=== PATIENT | male | born 1955 | race Caucasian/White ===

== ENCOUNTER 2017-01-18 11:51 | Emergency (ER) | payer OTHER ==
--- NOTE | 2017-01-18 12:31 | EDM.PDOC ---
ED HPI GENERAL MEDICAL PROBLEM - General Chief Complaint: ENT Problem Stated Complaint: LT EYE INJURY Time Seen by Provider: 01/18/17 12:07 Source of Information: Reports: Patient, Family (), RN Notes Reviewed History Limitations: Reports: No Limitations - History of Present Illness INITIAL COMMENTS - FREE TEXT/NARRATIVE: The patient states that he was clearing some brush, when the branch of an [place] struck him in his left eye around 11:00 this morning. He states that he flushed his eye copiously, but still has a foreign body sensation. He does not have pain in the eye, specifically. He has some blurry vision, but no photophobia. No prior left eye injury. The patient's PCP is Dr. Mack. Left Eye Pain Score (Numeric/FACES): 3 - Related Data Allergies Allergy/AdvReac Type Severity Reaction Status Date / Time gluten Allergy Abdominal Verified 01/18/17 12:08 Pain Home Meds: Home Meds Ketorolac [Acular 0.5% Ophth Soln] 1 drop EYELF QID PRN #1 bottle 01/18/17 [Rx] Pravastatin [Pravachol] 40 mg PO DAILY 01/18/17 [History] Past Medical History Cardiovascular History: Reports: High Cholesterol Gastrointestinal History: Reports: Celiac Disease - Past Surgical History GI Surgical History: Reports: Appendectomy, Hernia, Inguinal Social & Family History - Family History Family Medical History: Noncontributory - Tobacco Use Smoking Status *Q: Never Smoker - Alcohol Use Alcohol Use History: Yes Alcohol Use Frequency: Socially - Recreational Drug Use Recreational Drug Use: No - Living Situation & Occupation Living situation: Reports: , with Spouse Occupation: Employed ([employer]) ED ROS GENERAL - Review of Systems Review Of Systems: See Below Constitutional: Reports: No Symptoms HEENT: Reports: No Symptoms Respiratory: Reports: No Symptoms Cardiovascular: Reports: No Symptoms Endocrine: Reports: No Symptoms GI/Abdominal: Reports: No Symptoms : Reports: No Symptoms Musculoskeletal: Reports: No Symptoms Skin: Reports: No Symptoms Neurological: Reports: No Symptoms Psychiatric: Reports: No Symptoms Hematologic/Lymphatic: Reports: No Symptoms Immunologic: Reports: No Symptoms ED EXAM GENERAL W FULL EYE - Physical Exam Exam: See Below Exam Limited By: No Limitations General Appearance: Alert, WD/WN, No Apparent Distress Eye Exam: Left Eye: Corneal Abrasion (minimal), Bilateral Eye: EOMI, PERRL Eyelids: Bilateral: Normal Appearance Conjunctiva & Sclera: Left: Injected (mild) Cornea Exam: Left: Corneal Abrasion (scratch across middle of cornea), Examined with Flourescein Extraocular Movements: Bilateral: Intact Pupils: Normal Accommodation Pupillary Size: Bilateral: 5 mm Pupillary Reaction: Bilateral: Brisk Anterior Chamber: Bilateral: Normal Appearance ED EYE w/ Add Procedure - Eye Procedure Alcaine Drops Administered: Yes Course - Vital Signs Last Recorded V/S: Last Vital Signs Temp 36.7 C 01/18/17 12:06 Pulse 72 01/18/17 12:06 Resp 16 01/18/17 12:06 BP 133/83 01/18/17 12:06 Pulse Ox 97 01/18/17 12:06 - Re-Assessments/Exams Free Text/Narrative Re-Assessment/Exam: 01/18/17 12:24 The patient has a scratch on his left cornea. I will prescribe Acular. Departure - Departure Time of Disposition: 12:24 Disposition: Home, Self-Care 01 Condition: Good Clinical Impression: Left corneal abrasion - Discharge Information Prescriptions: Ketorolac [Acular 0.5% Ophth Soln] 1 drop EYELF QID PRN #1 bottle PRN Reason: Pain Instructions: Corneal Abrasion, [id number] Referrals: Clark Obando MD [Primary Care Provider] - Forms: ED Department Discharge Additional Instructions: You were seen in the emergency room after your left eye was injured by a tree branch. On examination, you have a scratch to your left cornea. Instill 1 drop of the pain medicine until Acular into your left eye every 6 hours, as needed for pain You should expect resolution of her symptoms within a few days. If your symptoms persist, please follow-up with an eye doctor. If any other problems, please do not hesitate to return to the ER.
== END 2017-01-18 12:36 | disposition home or self-care (01) ==
LOC: JD.ED 11:51
CPT/HCPCS: 99283

== ENCOUNTER 2017-09-15 08:53 | Day surgery (SDC) | payer OTHER ==
[~2017-09-15 08:53] MED LIST: Lactated Ringers 1,000 ML IV SCH; Lidocaine 1%/Sod Bicarbonate in NS 8.4% 1 ML Syringe IDERM PRN; Sodium Chloride 0.9% 10 ML Syringe FLUSH PRN
[2017-09-15] MEDS ORDERED: fentaNYL 100 MCG/2 ML SDV ONE ×2 (09:21→11:56)
[2017-09-15] MEDS ORDERED: Lidocaine 1% 2 ML ONE (09:21)
[2017-09-15] MEDS ORDERED: Midazolam 1 MG/ML 2 ML SDV ONE (09:21)
[2017-09-15] MEDS ORDERED: Ropivacaine 0.5% 5 MG/ML 30 ML SDV ONE (09:47)
[2017-09-15] MEDS ORDERED: EPINEPHrine 1 MG/ML SDV ONE (09:47)
[2017-09-15] MEDS ORDERED: Bupivacaine 0.25% 10 ML SDV ONE (09:59)
--- NOTE | 2017-09-15 10:01 | PCM.PREANE ---
Preanesthetic Assessment - Anesthesia/Transfusion/Family Hx Anesthesia History: Prior Anesthesia Without Reaction Family History of Anesthesia Reaction: No Transfusion History: No Prior Transfusion(s) - Review of Systems General: No Symptoms Pulmonary: No Symptoms Cardiovascular: No Symptoms Gastrointestinal: No Symptoms Neurological: No Symptoms Other: Reports: None - Physical Assessment NPO Status Date: 09/14/17 NPO Status Time: 19:30 Pulse: 62 O2 Sat by Pulse Oximetry: 97 Respiratory Rate: 16 Blood Pressure: 139/94 Temperature: 36.7 C Vital Signs: Last Vital Signs Temp 36.7 C 09/15/17 09:00 Pulse 62 09/15/17 09:00 Resp 16 09/15/17 09:00 BP 139/94 H 09/15/17 09:00 Pulse Ox 97 09/15/17 09:00 Height: 1.75 m Weight: 81.193 kg ASA Class: 2 Mental Status: Alert & Oriented x3 Dentition: Reports: Normal Dentition, [place](s) Thyro-Mental Finger Breadths: 3 Mouth Opening Finger Breadths: 3 ROM/Head Extension: Full Lungs: Clear to Auscultation, Normal Respiratory Effort Cardiovascular: Regular Rate, Regular Rhythm, No Murmurs - Lab Values: Laboratory Last Values MRSA (PCR) Negative 09/10/17 11:22 - Imaging/EKG Impressions: EKG on chart SR - Allergies Allergies/Adverse Reactions: Allergies Allergy/AdvReac Type Severity Reaction Status Date / Time gluten Allergy Abdominal Verified 09/15/17 09:50 Pain - Blood Blood Available: No Product(s) Available: None - Anesthesia Plan Pre-Op Medication Ordered: None - Acknowledgements Anesthesia Type Planned: General Anesthesia, Regional Block (interscalene block for post-op pain control) Pt an Appropriate Candidate for the Planned Anesthesia: Yes Alternatives and Risks of Anesthesia Discussed w Pt/Guardian: Yes Pt/Guardian Understands and Agrees with Anesthesia Plan: Yes PreAnesthesia Questionnaire HEENT History: Reports: None Cardiovascular History: Reports: High Cholesterol Respiratory History: Reports: SOB Gastrointestinal History: Reports: Celiac Disease, Other (See Below) Other Gastrointestinal History: duodenitis, fatty liver Genitourinary History: Reports: None MANAGER OF FINANCIAL History: Reports: None Musculoskeletal History: Reports: Back Pain, Chronic, Other (See Below) Other Musculoskeletal History: right hand fracture, hamstring strain, muscle spasms Neurological History: Reports: Other (See Below) Other Neuro History: dizziness Psychiatric History: Reports: None Endocrine/Metabolic History: Reports: None Hematologic History: Reports: None Immunologic History: Reports: None Oncologic (Cancer) History: Reports: None Dermatologic History: Reports: None - Past Surgical History Head Surgeries/Procedures: Reports: None HEENT Surgical History: Reports: None Cardiovascular Surgical History: Reports: None Respiratory Surgical History: Reports: None GI Surgical History: Reports: Appendectomy, Colonoscopy, EGD, Hernia, Inguinal Male Surgical History: Reports: Vasectomy Endocrine Surgical History: Reports: None Neurological Surgical History: Reports: None Musculoskeletal Surgical History: Reports: None Oncologic Surgical History: Reports: None Dermatological Surgical History: Reports: None - SUBSTANCE USE Smoking Status *Q: Never Smoker Tobacco Use Within Last Twelve Months: No Second Hand Smoke Exposure: No Days Per Week of Alcohol Use: 0 Number of Drinks Per Day: 0 Total Drinks Per Week: 0 Recreational Drug Use History: No - HOME MEDS Home Medications: Home Meds Pravastatin [Pravachol] 40 mg PO DAILY 01/18/17 [History] Ascorbic Acid [Vitamin C] 500 mg PO DAILY 09/12/17 [History] Ergocalciferol (Vitamin D2) [Vitamin D2] 50,000 unit PO WEEKLY 09/12/17 [History ] Acetaminophen/HYDROcodone [[place] 325-5 MG] 1 - 2 tab PO Q6H PRN #40 tablet 09/15 [Rx] Cyclobenzaprine [Flexeril] 10 mg PO Q8H PRN #40 tab 09/15/17 [Rx] - CURRENT (IN HOUSE) MEDS Current Meds: Current Medications Epinephrine HCl (Adrenalin) 3 mg .XX ONETIME ONE Stop: 09/15/17 11:46 Lactated Ringer's (Ringers, Lactated) 1,000 mls @ 125 mls/hr IV ASDIRECTED [place] Stop: 09/15/17 23:00 Lidocaine/Sodium Bicarbonate (Buffered Lidocaine 1% In Ns 8.4%) 0.25 ml IDERM ONETIME PRN PRN Reason: Prior to IV Start Stop: 09/15/17 18:00 Sodium Chloride (Saline Flush) 10 ml FLUSH ASDIRECTED PRN PRN Reason: Keep Vein Open Stop: 09/15/17 18:00 Discontinued Medications Bupivacaine HCl (Sensorcaine-Mpf 0.25%) Confirm Administered Dose 10 ml .ROUTE .STK-MED ONE Stop: 09/15/17 10:00 Fentanyl (Sublimaze) Confirm Administered Dose 100 mcg .ROUTE .STK-MED ONE Stop: 09/15/17 09:22 Lidocaine HCl (Xylocaine-Mpf 1%) Confirm Administered Dose 2 mls @ as directed .ROUTE .STK-MED ONE Stop: 09/15/17 09:22 Midazolam HCl (Versed 1 Mg/Ml) Confirm Administered Dose 2 mg .ROUTE .STK-MED ONE Stop: 09/15/17 09:22
[2017-09-15] MEDS ORDERED: Propofol 200 MG/20 ML SDV ONE (10:11)
[2017-09-15] MEDS ORDERED: Lidocaine 1% 4 ML ONE (10:11)
[2017-09-15] MEDS ORDERED: Ondansetron 4 MG/2 ML SDV ONE (10:11)
--- NOTE | 2017-09-15 10:45 | PCM.SN ---
- Free Text/Narrative Note: 09/15/17 [id number] Time out performed. Requested to place right interscale block with ultrasound guidance and nerve stimulator for post op pain control per Dr. Solis and patient. Preop diagnosis right shoulder pain. Procedure is right shoulder arthrosocpy with rotator cuff repair, decompression. Block assisted by Shyanne Matson Informed consent obtained. Monitors and O2 placed at 2 l per n/c. Versed 2 mg and Fentanyl 50 mcg given IV total. Patient awake and talking during procedure.Right neck and clavicle area prepped with chlorprep. Sterile gloves, hat and mask worn. US probe with sterile sleeve placed midclavicular with ID of brachial plexus and subclavian artery. Brachial plexus followed cephalad to level of cricoid. Lidocaine 1% local anesthetic injected prior to block placement. 22 g 2 inch stimplex needle advanced with US guidance to brachial plexus. Positive forearm response at .3 AmA with nerve stimulator. Ceased with saline injection.Ropivacaine 0.5% with epi 1:200,000 injected in increments of 5 ml with negative aspiration before each injection to a total of 30 ml. Good spread of local anesthetic seen on US. Patient tolerated procedure well. Vitals stable with no complaints. AJordaCRNA
[2017-09-15] MEDS ORDERED: Dexamethasone 4 MG/ML 5 ML MDV ONE (10:56)
[2017-09-15] MEDS ORDERED: ceFAZolin 1 GM Vial ONE (10:56)
[2017-09-15] MEDS ORDERED: Ketorolac 30 MG/ML SDV ONE (10:59)
[2017-09-15] MEDS ORDERED: Rocuronium 50 MG/5 ML Vial ONE (11:35)
[2017-09-15] MEDS ORDERED: EPINEPHrine 1 MG/ML 30 ML MDV ONE (11:45)
--- NOTE | 2017-09-15 13:18 | PCM.POSTAN ---
POST ANESTHESIA ASSESSMENT - MENTAL STATUS Mental Status: Alert, Oriented - VITAL SIGNS Pulse Rate: 66 SaO2: 94 Resp Rate: 16 Blood Pressure: 132/71 Temperature: 36.2 C - RESPIRATORY Respiratory Status: Respiratory Rate WNL, Airway Patent, O2 Saturation Stable, Supplemental Oxygen - CARDIOVASCULAR CV Status: Pulse Rate WNL, Blood Pressure Stable - GASTROINTESTINAL GI Status: No Symptoms - PAIN Pain Score: 0 - POST OP HYDRATION Hydration Status: Adequate & Stable
[2017-09-15] MEDS ORDERED: Ondansetron 4 MG/2 ML SDV IVPUSH PRN (13:19)
[2017-09-15] MEDS ORDERED: fentaNYL 100 MCG/2 ML SDV IVPUSH PRN (13:19)
[2017-09-15] MEDS ORDERED: Lactated Ringers 1,000 ML ONE (13:19)
--- NOTE | 2017-09-15 13:30 | PCM48HPAN ---
Post Anesthesia Note - EVALUATION WITHIN 48HRS OF ANESTHETIC Vital Signs in Normal Range: Yes Patient Participated in Evaluation: Yes Respiratory Function Stable: Yes Airway Patent: Yes Cardiovascular Function Stable: Yes Hydration Status Stable: Yes Pain Control Satisfactory: Yes Nausea and Vomiting Control Satisfactory: Yes Mental Status Recovered: Yes Pulse Rate: 66 Resp Rate: 16 Temperature: 36.2 C Blood Pressure: 132/71
[2017-09-15 15:38] VITALS: BP 141/77
--- NOTE | 2017-09-25 21:59 | PCM.OPNOTE ---
- General Post-Op/Procedure Note Date of Surgery/Procedure: 09/15/17 Operative Procedure(s): right shoulder video arthroscopy with rotator cuff repair and subacromial decompression with limited debridement Pre Op Diagnosis: right shoulder rotator cuff tear with impingement Post-Op Diagnosis: Same Anesthesia Technique: General ET Tube, Regional Block Primary Surgeon: Ashvin Solis Anesthesia Provider: Carlitos Nino Strategic Marketing Leader: Ashley Kessler EBL in mLs: 5 Complications: None Condition: Good
--- NOTE | 2017-09-25 23:08 | OR ---
DATE OF OPERATION: 09/15/2017 SURGEON: Ashvin Solis MD OPERATION PERFORMED: Right shoulder video arthroscopy, rotator cuff repair, subacromial decompression with limited debridement. PREOPERATIVE DIAGNOSIS: Right shoulder rotator cuff tear with impingement. POSTOPERATIVE DIAGNOSIS: Right shoulder rotator cuff tear with impingement. ANESTHESIA: Technique, general endotracheal intubation with a regional interscalene block. ANESTHESIA PROVIDER: Carlitos Nino CRNA. RACECAR DRIVER: Ashley Kessler PA-C. ESTIMATED BLOOD LOSS: Less than 5 mL. COMPLICATIONS: None. CONDITION: Stable. DESCRIPTION OF PROCEDURE: The patient was identified in the preop holding area. Proper site was marked and identified by the surgeon. The patient was taken back to the operating theater, where after adequate anesthesia, the patient was placed in supine on the flat-top table and then was placed in the lazy left lateral decubitus position. A wedge was placed posteriorly. All bony prominences were well padded. The right shoulder was then sterilely prepped and draped in the usual sterile fashion. OR time-out was performed. The patient received 2 g of IV Ancef, 15 pounds traction was applied to the right upper extremity. Standard posterior incision was made. The scope trocar was introduced into the glenohumeral joint. At this time, with the use of a spinal needle anterior portal was also created. The labrum was intact. There were no signs of chondromalacia. The biceps tendon showed no signs of fraying, no tendinopathy, there was noted to be a high-grade partial-thickness tear to the supraspinatus, the infraspinatus and teres minor were intact. There was no Hill-Sachs lesion on the footprint and subscapularis was intact. At this time, attention was turned to subacromial space. At this time, the patient was noted to have significant bursa noted in subacromial space and a limited debridement was done of the subacromial space. A lateral portal was then also created with the use of a spinal needle. Material was then completed, a good bony bleeding bed was then created and one 4.75 mm Arthrex SwiveLock anchor was placed medially. Two limbs of FiberWire and 2 limbs of FiberTape were then placed. The FiberWire was then tied and all 4 limbs were brought out laterally with another 4.75 mm SwiveLock Arthrex anchor. At this time, this was then placed and tension was applied to the sutures, it was found to have adequate fixation and good watertight repair. At this time, with the use of a 4-0 full-radius wilfrido, an acromioplasty was performed for subacromial decompression down to a smooth border that was even with a posterior border of the acromion. Once this was completed and found to be significantly resected, the patient was noted to have a smooth undersurface of the acromion. At this time, excess saline was drained from the shoulder, 3-0 nylon simple suture was used for closure of the skin. The patient was placed in a pillow sling and sent to PACU in stable condition. TC /[id number]
== END 2017-09-15 15:30 | disposition home or self-care (01) ==
LOC: JD.SDS 08:53
PROVIDERS: ATTEND Orthopaedic Surgery
DX: M75.101 Unspecified rotator cuff tear or rupture of right shoulder, not specified as traumatic (principal); M75.41 Impingement syndrome of right shoulder; E78.2 Mixed hyperlipidemia; Z79.899 Other long term (current) drug therapy; Z88.8 Allergy status to other drugs, medicaments and biological substances
CPT/HCPCS: 29822; 29826; 64415; 87641; J0171; J0690; J1100; J1885; J2250; J2405; J2795; J3010; J7120; 01610; J2704